=== PATIENT | male | born 1985 | race African-American/Black ===

== ENCOUNTER → 2024-09-04 16:19 | Outpatient (CLI) | payer OTHER, SELFPAY ==
--- NOTE | 2024-09-04 16:22 | DI.US.S_ITS ---
PROCEDURE: US ABDOMEN LIMITED INDICATIONS: URIAS TECHNIQUE: Real-time scanning was performed of the abdominal and retroperitoneal organs, with image documentation. COMPARISON: None. FINDINGS: Liver: Measures 20.1 cm in length. Increased in echogenicity. Areas of hypoechogenicity near the gallbladder most consistent with focal fatty sparing. Gallbladder: Contracted. No gallstones. No wall thickening. No pericholecystic edema. Negative sonographic Figueroa's sign. Biliary ducts: Intrahepatic bile ducts are non-dilated. Common hepatic duct measures 4 mm. CBD is not well seen. Pancreas: Not well seen due to overlying bowel gas. IMPRESSION: 1. Prominent liver size. Increased hepatic echogenicity most consistent with hepatic steatosis. Other forms of hepatocellular disease could have similar appearance. 2. No gallstones demonstrated. Dictated by: Oswaldo Holt M.D. on 09/05/2024 at 15:11 Approved by: Oswaldo Holt M.D. on 09/05/2024 at 15:13
== END ==
LOC: US 16:21
PROVIDERS: Referring Provider Internal Medicine; Visit Provider Internal Medicine
DX: K75.81 Nonalcoholic steatohepatitis (NASH) (principal)
CPT/HCPCS: 76705